=== PATIENT | female | born 1990 | race Caucasian/White ===

== ENCOUNTER 2022-12-14 00:12 | Inpatient (IN) | payer OTHER ==
[~2022-12-14] VITALS: Ht 160 cm; Wt 3.2 kg
[~2022-12-14 00:12] MED LIST: PRENAT PO
[2022-12-15] MEDS ORDERED: PRENATAL + DHA1 EAC1 (16:33)
== END 2022-12-16 15:15 | disposition home or self-care (01) | DRG 788 ==
LOC: LDR 00:12 → OB/GYN 00:12
PROVIDERS: ADMIT Obstetrics & Gynecology Maternal & Fetal Medicine; ATTEND Obstetrics & Gynecology Maternal & Fetal Medicine
PROC: 4A1HXCZ Monitoring of Products of Conception, Cardiac Rate, External Approach (ICD-10-PCS; 2022-12-14)
PROC: 10D00Z1 Extraction of Products of Conception, Low, Open Approach (ICD-10-PCS; principal; 2022-12-14 11:45)
DX: O32.1XX0 Maternal care for breech presentation, not applicable or unspecified (principal); Z3A.39 39 weeks gestation of pregnancy; Z37.0 Single live birth; Z20.822 Contact with and (suspected) exposure to COVID-19